=== PATIENT | female | born 1950 | race Caucasian/White ===

== ENCOUNTER 2016-10-15 16:50 | Inpatient (IN) ==
[~2016-10-15 16:50] MED LIST: AMIDATE ONE; QUELICIN ONE
[2016-10-15] MEDS ORDERED: ZOFRAN ONE (16:55)
[2016-10-15] MEDS ORDERED: NS 1,000 ML IV PRN (16:57)
[2016-10-15] MEDS ORDERED: ZOFRAN IV ONE (16:59)
[2016-10-15] MEDS ORDERED: NS 1,000 ML ONE (17:11)
[2016-10-15] MEDS ORDERED: PEPCID ONE (17:12)
--- NOTE | 2016-10-15 17:15 | EKG Report ---
Test Performed on : 10/15/2016 5:00:54 PM Test Reason : unresponsive Blood Pressure : / mmHG Vent. Rate : 137 BPM Atrial Rate : 137 BPM P-R Int : 080 ms QRS Dur : 078 ms QT Int : 374 ms P-R-T Axes : 000 066 074 degrees QTc Int : 564 ms Sinus tachycardia. with short DC ST \T\ T wave abnormality, consider anterior ischemia Abnormal ECG No previous ECGs available Unconfirmed Result
[2016-10-15 17:16] LABS: MANUAL DIFF NEEDED? NO
[2016-10-15] MEDS ORDERED: SODIUM CHLORIDE 0.9% INJ ONE ×4 (17:18→23:36)
[2016-10-15] MEDS ORDERED: PEPCID IV ONE ×2 (17:18→18:08)
[2016-10-15] MEDS ORDERED: NS 1,000 ML IV ONE ×2 (17:20→19:24)
[2016-10-15 17:22] LABS: BASO% 0.3 % (0.0-0.8); EOS# 0.06 X1000 (0.0-0.7); EOS% 0.4 % (0.0-10.0); HEMATOCRIT 39.7 % (37.0-47.0); HEMOGLOBIN 13.3 g/dL (12.0-16.0); IMM GRAN# 0.05 X1000 (0.0-0.04); IMM GRAN% 0.3 % (0.0-0.5); LYMPH# 4.89 X1000 (1.2-3.4); LYMPH% 32.2 % (20.5-51.1); MCH 31.5 PG (27-31); MCHC 33.5 g/dL (33-37); MCV 94.1 FL (81-99); MONO# 0.75 X1000 (0.11-0.59); MONO% 4.9 % (1.7-9.3); MPV 10.3 FL (7.4-10.4); NEUT% 61.9 % (42.2-75.2); PLT 311 X1000 (130-400); RBC 4.22 XMIL (4.2-5.4)
[2016-10-15] MEDS ORDERED: PHENERGAN ONE (17:31)
[2016-10-15 17:38] LABS: UR AMPHETAMINES QUAL NONE DETECTED (NONE DETECT); UR BARBITUATES QUAL NONE DETECTED (NONE DETECT); UR BENZODIAZEPIN QUAL NONE DETECTED (NONE DETECT); UR CANNABINOIDS QUAL NONE DETECTED (NONE DETECT); UR COCAINE QUAL NONE DETECTED (NONE DETECT); UR MDMA QUAL NONE DETECTED (NONE DETECT); UR METHADONE QUAL NONE DETECTED (NONE DETECT); UR METHAMPHETAMINE QUAL NONE DETECTED (NONE DETECT); UR OPIATES QUAL NONE DETECTED (NONE DETECT); UR OXYCODONE QUAL NONE DETECTED (NONE DETECT); UR PCP QUAL NONE DETECTED (NONE DETECT); UR TCA QUAL PRESUMPTIVE POSITIVE (NONE DETECT)
[2016-10-15 17:44] LABS: BILIRUBIN URINE NEGATIVE (NEGATIVE); BLOOD URINE NEGATIVE (NEGATIVE); CLARITY CLEAR (CLEAR); COLOR YELLOW; GLUCOSE URINE NEGATIVE (NEGATIVE); LEUKOCYTES URINE 1+ (NEGATIVE); NITRITE URINE NEGATIVE (NEGATIVE); PROTEIN URINE TRACE mg/dL (NEGATIVE); UROBILINOGEN URINE NORMAL
[2016-10-15 17:45] LABS: URINE CAST NONE SEEN /LPF; URINE CRYSTAL NONE SEEN /HPF; URINE CULTURE PL NEEDED? YES; URINE EPITHELIAL CELLS <10 /HPF (<10); URINE SOURCE CATH
[2016-10-15 17:51] LABS: ACETAMINOPHEN < 1.2 ug/mL (10-30)
[2016-10-15 17:52] LABS: INR 1.25 (0.86-1.15); PTT PL 28.4 Seconds (22.6-43.9)
[2016-10-15] MEDS ORDERED: PHENERGAN IV ONE (18:08)
[2016-10-15 18:13] LABS: AGAP 19; ALBUMIN 4.4 g/dL (3.5-5.0); ALKALINE PHOSPHATASE 63 U/L (32-104); BUN 26 mg/dL (8-22); CHLORIDE 102 mmol/L (98-107); COSMO 290; GOT 27 U/L (10-30); GPT 11 U/L (10-36); POTASSIUM 3.6 mmol/L (3.5-5.1); SODIUM 142 mmol/L (136-145); TCO2 21 mmol/L (25-35); TOTAL BILIRUBIN < 0.15 mg/dL (0.20-1.00); TOTAL PROTEIN 7.2 g/dL (6.3-8.3)
[2016-10-15 18:22] LABS: BE -0.3 mmoll (-3.0-3.0); BLOOD TYPE ARTERIAL; DRAW SITE R RADIAL; METHB 1.7 % (0.0-1.5); O2(CT) 14.3 mL/dL (15.0-23.0); PCO2(98.6) 37 mmHg (35-45); PO2(98.6) 84 mmHg (60-100); SAMPLE BLOOD; SAO2 97.8 % (95.0-100.0); THB 11.2 g/dL (11.5-17.4); pH(98.6) 7.42 (7.35-7.45)
[2016-10-15 18:25] LABS: ALLEN TEST NO; MODALITY CANNULA
[2016-10-15] MEDS ORDERED: ZOFRAN IV PRN ×2 (19:24→22:49)
[2016-10-15] MEDS ORDERED: PROTONIX IV SCH (22:30)
[2016-10-15] MEDS ORDERED: SODIUM CHLORIDE 0.9% INJ SCH (22:30)
[2016-10-15] MEDS ORDERED: PNEUMOVAX 23 IM ONE (22:49)
[2016-10-15] MEDS ORDERED: SODIUM BICARBONATE 8.4% 150 MEQ in D5W 1,000 ML IV SCH (23:00)
[2016-10-15 23:17] LABS: HEMATOCRIT 34.3 % (37.0-47.0); HEMOGLOBIN 11.6 g/dL (12.0-16.0)
[2016-10-15] MEDS ORDERED: PROTONIX IV ONE (23:36)
[2016-10-15] MEDS ORDERED: HALDOL IV PRN (23:37)
[2016-10-15 23:38] LABS: AGAP 14; BUN 25 mg/dL (8-22); CALCIUM 8.3 mg/dL (8.8-10.2); CHLORIDE 108 mmol/L (98-107); COSMO 293; POTASSIUM 3.6 mmol/L (3.5-5.1); SODIUM 145 mmol/L (136-145); TCO2 23 mmol/L (25-35)
[2016-10-15] MEDS ORDERED: ZYPREXA ZYDIS PO ONE (23:38)
[2016-10-15] MEDS: PROTONIX 80 MG in NS 80 ML IV SCH (23:55)
--- NOTE | 2016-10-16 07:08 | HISTORY AND PHYSICAL ---
TIME: 2149 PRIMARY CARE PROVIDER: Patient's primary care provider is EZRA Childers. NEUROLOGIST: Dr. Tian CHIEF COMPLAINT: Altered mental status. HISTORY OF PRESENT ILLNESS: Ms. Dhillon is a 66-year-old, female who presented to [facility] ER at approximately at 1650 on October 15 with complaints of altered mental status as well as possible seizure activity and nausea and vomiting. The patient's daughter, who was with her mother at the time of this episode, reports that all day that she complained of not feeling well and feeling very tired. She states that this afternoon, they walked to the grocery store which is only a few blocks from their house. When they returned from the grocery store, that her mother was very tired, stated she needed to sit down on the couch, and then stated that she felt as though she needed to lay down. She reported that she got her mother into the bedroom and that is when she became very cold, diaphoretic, and her eyes began to roll back in her head, and she did fall, having what appeared to be seizure activity. Daughter reports that her mother was not responsive at this time and was shaking. Her daughter sts she had a similar episode 3 months ago. She also reports that during this time, she did have a vomiting episode which did have a coffee-grounds appearance to the emesis. At this time, her daughter did call an ambulance and had them bring her to the ER at [facility]. Her daughter also reports that for the past few days, her mother has been complaining of some abdominal pain. She did report that a few days ago that she had some blood in her stools but told her that it was better. Her daughter also reports that she has been complaining of feeling tired for the past few weeks. She also reports that she does have a history of chronic headaches and uses BC/Goody's powders daily. Her daughter sts that she can take anywhere up to 6 of these a day. Her daughter also reports that she does have a history of dementia, anxiety, and depression, and that recently they have changed some of her medications. I did ask the daughter whether or not she took any other medications. The daughter states that she did check her medication bottles which were empty, though these medicines were to be filled tomorrow. Upon arrival to the ER at [facility], the ER staff there reported that the patient was confused. She was alert and oriented to person only, and was initially combative and did have to be placed in restraints at 1 time while in the ER. Upon further evaluation, given the patient's report of recent salicylate usage and abdominal pain with vomiting, a Hemoccult stool was done which was positive. At this time, the patient's hemoglobin and hematocrit were within normal range with a hemoglobin of 13.3 and a hematocrit of 39.7. Also, her salicylate level was 48.45. At this time, the patient will be transferred to [facility] for further evaluation of gastrointestinal bleed as well as salicylate toxicity. REVIEW OF SYSTEMS: A 12 point review of systems was conducted with the patient. All were negative except for pertinent positives mentioned above in the HPI. PAST MEDICAL HISTORY: 1. Hypertension. 2. Hyperlipidemia. 3. History of gastric ulcers. 4. Migraines. 5. Dementia. 6. Anxiety. 7. Depression. 8. Tobacco abuse. 9. History of previous alcohol abuse. PAST SURGICAL HISTORY: Patient has no known history of previous surgeries. SOCIAL HISTORY: The patient is a current smoker and smokes anywhere from 1-2 packs per day and has so for 48 years. She also does have a previous history of heavy every day alcohol use. Her daughter states that she abused alcohol for approximately 20 years, though has quit drinking for approximately 10 years now. Her daughter and her live together here in [place]. She denies any illicit drug use. FAMILY HISTORY: Her mother has a history of heart disease and open heart surgery as well as lung cancer and hypertension. Her father has a history of lung cancer. There is a history of hypertension in her other siblings. ALLERGIES: Patient has no known allergies. HOME MEDICATIONS: 1. Aricept 10 mg p.o. daily. 2. Atenolol 25 mg p.o. daily. 3. Amitriptyline 75 mg p.o. at bedtime. 4. Hydrochlorothiazide 25 mg p.o. daily. 5. Lexapro 20 mg p.o. daily. 6. Pravastatin 40 mg p.o. daily. 7. Loratadine 10 mg p.o. daily. DIAGNOSTIC DATA/LABORATORY RESULTS: White blood cell count 15.2, hemoglobin 13.3, hematocrit 39.7, platelet count is 311,000. PT 16, INR 1.25, PTT is 28.4. Sodium 142, potassium 3.6, chloride 102, bicarb 21, anion gap is 19, BUN 26, creatinine 1, with a GFR of 56 , glucose 135, calcium 9. Total bilirubin is less than 0.15, AST 27, ALT 11, alkaline phosphatase 63, CK 87, troponin less than 0.01. Salicylate level was 48.45, acetaminophen level was less than 1.2. Urinalysis was positive for trace protein, 1+ white blood cells, and 10-20 microscopic white blood cells, and 1+ bacteria. It was negative for ketones, blood, or nitrites. Urine drug screen was positive for tricyclics, though was otherwise negative. Hemoccult stool was positive. Arterial blood gases were obtained on nasal cannula at 3 L, pH 7.42, pCO2 37, PO2 84, HCO3 was 24.6, with a base excess of -0.3, and O2 saturation of 97.8, with a carboxyhemoglobin of 5.9. A chest x-ray showed no acute abnormality, though we are awaiting official radiology over-read. Head CT non-contrast shows no hemorrhage, atrophy, and right sided sinusitis, per radiology. Patient's EKG showed sinus tachycardia with a short AL, with an ST and T-wave abnormality, with a rate of 137. PHYSICAL EXAMINATION: VITAL SIGNS: Temperature 98.7 degrees, heart rate 97, respirations 18, blood pressure 93/52, with a MAP of 63, oxygen saturation is 98% on nasal cannula at 2 L. GENERAL: Ms. Dhillon is a 66-year-old, female who was resting comfortably in the inpatient bed. She was drowsy upon examination, though was easily arousable with verbal stimulation. She was alert and oriented to person and time only. She thought that she was at home in her bed instead of in the hospital. During the examination, the patient did have some periods where she became agitated, though did ultimately calm down. HEENT: Head is atraumatic, normocephalic. Pupils are equal, round, reactive to light, were 3 mm bilaterally and brisk. Oral mucosa is moist. Oropharynx is clear. NECK: Supple. Trachea midline. CARDIOVASCULAR: Patient has normal S1 and S2. No murmurs, gallops, or rubs appreciated, with a regular rate and rhythm. PULMONARY: Patient has symmetrical chest expansion. Bilateral lung sounds are clear to auscultation in bilateral full espinal. ABDOMEN: Soft and nondistended. No facial grimacing or guarding noted upon palpation of the abdomen. Bowel sounds were present in all 4 quadrants, were normoactive. GENITOURINARY: Patient has a Scott catheter in place at this time with yellow urine noted to the Scott drainage bag. EXTREMITIES: No cyanosis, clubbing, or edema noted. Pulse, motor and sensory were intact in all extremities as well. Pedal pulses were 3+ bilaterally. Capillary refill was less than 3. INTEGUMENTARY: Patient's skin is pink, warm, and dry. NEUROLOGICAL: The patient is alert and oriented to person and time only, though her neurological exam is somewhat limited. The cranial nerves 2-12 do appear to be grossly intact. ASSESSMENT AND PLAN: 1. Gastrointestinal bleed. At this time, we suspect this is an upper gastrointestinal bleed given her history of gastric ulcer as well as daily use of BC powders and reported coffee- grounds emesis. We have placed the patient on a Protonix drip. We will do a series of hemoglobin and hematocrit, and follow these closely. At this time, the patient is hemodynamically stable. She will be placed nothing per oral. We have placed a consult with Dr. Lucas and we will await her evaluation and further recommendations. 2. Salicylate toxicity. At this time, the patient's salicylate level was initially 48.45 with a repeat of 33.93 approximately 6 hours later. Her previous pH in her arterial blood gases was normal. On the most recent lab work, her bicarbonate is 23 with an anion gap of 14. We have placed the patient on a sodium/bicarbonate drip and we will repeat a salicylate level in the morning. We have also placed her on neurological checks every 4 hours as well as aspiration precautions. We will monitor her very closely. 3. Hypertension. We will continue her atenolol. 4. Hyperlipidemia. We will continue her pravastatin. 5. Depression. We will continue her amitriptyline and Lexapro. 6. Dementia. We will continue her Aricept. 7. Tobacco abuse. We will rehabilitation counselor the patient during her admission of the importance of smoking cessation and upon discharge. 8. The patient was placed on CICU with telemetry. She will have vital signs every 4 hours. We will provide deep venous thrombosis prophylaxis with sequential compression devices. There is a questionable history of an episode of seizure-like activity so we have also placed her on seizure precautions. We will repeat a CBC, BMP, and salicylate level in the morning. We have also placed an order for hepatic function as well, as well as a repeat INR. The patient did have some white blood cells and bacteria present in her urine. We have placed an order for a urine culture. We will await those results and we will continue to follow. Further orders and recommendations pending hospital course, diagnostic studies, and physician evaluation. Dictated by EZRA Landeros for Beni Rock MD cc: Beni Rock MD pt examined, agree with above APENOT MTDD
--- NOTE | 2016-10-16 07:08 | Diag Imaging Result Doc PS360 ---
EXAM: HEAD W/O CONTRAST HISTORY: AMS TECHNIQUE: Dose reduction protocol COMPARISON: None. FINDINGS: The original dictation has been lost. No parenchymal hemorrhage. No epidural or subdural hematoma. No subarachnoid hemorrhage. Mild atrophy. No hydrocephalus. Mucous fills the right frontal sinus and is present in the right maxillary sinus. IMPRESSION: 1.No hemorrhage 2.Atrophy 3.Right-sided sinusitis Electronically signed by Estiven Velasco 10/16/2016 6:15 AM
--- NOTE | 2016-10-16 07:11 | Diag Imaging Result Doc PS360 ---
EXAM: CHEST-PORTABLE HISTORY: abd pain/r/o gi bleed TECHNIQUE: AP portable at 1712 COMMENT: There is no evidence of acute cardiac or pulmonary disease. There are no previous studies. IMPRESSION: No acute disease. Electronically signed by Obed Antony 10/16/2016 7:09 AM
[2016-10-16 07:35] LABS: INR 1.27; MANUAL DIFF NEEDED? NO; PROTIME 13.5 Seconds (9.2-11.7)
--- NOTE | 2016-10-16 07:41 | Diag Imaging Result Doc PS360 ---
ABDOMEN FLAT/UPRIGHT - 10/15/2016 INDICATION: pain TECHNIQUE: Two views COMPARISON: None FINDINGS: There is a nonobstructive bowel gas pattern. No free air or abdominal calcifications. IMPRESSION: No acute disease. Electronically signed by Dale Pace 10/16/2016 7:39 AM
[2016-10-16 07:59] LABS: BASO% 0.2 % (0.0-0.8); EOS# 0.07 X1000 (0.0-0.7); EOS% 0.6 % (0.0-10.0); HEMATOCRIT 33.5 % (37.0-47.0); IMM GRAN# 0.03 X1000 (0.0-0.04); IMM GRAN% 0.3 % (0.0-0.5); LYMPH# 3.87 X1000 (1.2-3.4); LYMPH% 34.2 % (20.5-51.1); MCH 31.7 PG (27-31); MCHC 32.8 g/dL (33-37); MCV 96.5 FL (81-99); MONO# 0.61 X1000 (0.11-0.59); MONO% 5.4 % (1.7-9.3); MPV 10.6 FL (7.4-10.4); NEUT% 59.3 % (42.2-75.2); PLT 246 X1000 (130-400); RBC 3.47 XMIL (4.2-5.4)
[2016-10-16 08:16] LABS: AGAP 12; BUN 26 mg/dL (8-22); CALCIUM 8.1 mg/dL (8.8-10.2); CHLORIDE 107 mmol/L (98-107); COSMO 294; SODIUM 146 mmol/L (136-145); TCO2 27 mmol/L (25-35)
[2016-10-16 08:50] LABS: ALBUMIN 3.6 g/dL (3.5-5.0); ALKALINE PHOSPHATASE 49 U/L (32-104); DIRECT BILIRUBIN < 0.20 mg/dL (0.00-0.20); GOT 20 U/L (10-30); GPT 8 U/L (10-36); TOTAL BILIRUBIN < 0.10 mg/dL (0.20-1.00); TOTAL PROTEIN 5.2 g/dL (6.3-8.3)
[2016-10-16] MEDS ORDERED: TENORMIN PO SCH (09:00)
[2016-10-16] MEDS ORDERED: HYDROCHLOROTHIAZIDE PO SCH (09:00)
[2016-10-16] MEDS ORDERED: CLARITIN PO SCH (09:00)
--- NOTE | 2016-10-16 09:22 | PROGRESS NOTE ---
DATE: 10/16/2016 SUBJECTIVE: Ms. Dhillon presented yesterday. Apparently she had a spell that started with nausea and then she had, by her daughter's report, some shaking and throwing up. I am not sure if she aspirated. Daughter seemed to think she was having a seizure but she seemed to remain conscious. Apparently he has had a spell like this before. No focal neurologic deficit reported. The daughter states her eyes rolled back in her head. This morning she feels fine. She has no complaints. No nausea. She is requesting food. OBJECTIVE: Neurologic: I do not detect any new neurologic deficits. Cranial nerves intact. Motor strength seems to be symmetrical. Sensation intact. Vital signs: Temp 98.3 degrees, pulse 80, respirations 14, blood pressure 81/47. Lungs: Clear in all lung espinal. Cardiovascular: Regular rhythm and rate without murmur or S3. Abdomen: Soft. Skin: Warm and dry. : Good urine output 1150 mL. LAB: Work from this morning, white count 11,330, yesterday was 15,000, hematocrit 33, platelet count 246,000. Sodium 146, potassium 3.0, chloride 107, BUN 26, creatinine 0.6. Abdominal x-ray which was done yesterday did not show any acute abnormality. No acute disease. ASSESSMENT AND PLAN: Spell involving nausea and it sounds like a short syncopal episode, but then also some shaking. It does not sound like a tonic-clonic seizure and this may be a vasovagal event associated with the nausea. She appears to be comfortable at the present time, neurologically intact. Note that blood pressure is a little on the low side. She is requesting food. I will put her on a regular diet. She is on Tenormin daily, 25 mg a day, and I wonder if I need to stop that. Try and explore some of her past medical history. She is also on hydrochlorothiazide once a day. I think I am going to stop both of those. She has also been taking a lot of Goody powders recently but she denies abdominal pain that would be suggestive of peptic ulcer disease. I am going to stop her Claritin. I am going to stop her atenolol. Of note, she is on a pretty good dose of amitriptyline too which could cause orthostasis. I am going to ask neurology, I think Dr. Tian has seen her before, if it have any thoughts. cc: Tl Howe MD
[2016-10-16] MEDS: LEXAPRO PO SCH (09:43)
[2016-10-16] MEDS: ARICEPT PO SCH (09:44)
[2016-10-16] MEDS: POTASSIUM CHLORIDE 20 MEQ/SWI 20 MEQ/100 ML IVPB IV SCH ×2 (09:44→11:55)
[2016-10-16] MEDS: PRAVACHOL PO SCH (09:44)
[2016-10-16] MEDS: PROTONIX 80 MG in NS 80 ML IV SCH ×2 (09:44→21:37)
[2016-10-16 10:34] LABS: HEMATOCRIT 35.2 % (37.0-47.0); HEMOGLOBIN 11.5 g/dL (12.0-16.0)
--- NOTE | 2016-10-16 16:34 | CONSULTATION ---
DATE OF CONSULTATION: 10/16/2016 REASON FOR REFERRAL: Nausea and vomiting. Questionable GI bleed. HISTORY OF PRESENT ILLNESS: This is a 66-year-old white female who reports onset of symptoms yesterday morning. Patient's daughter is at the bedside. The patient states they had walked to the grocery store which is not far from their house. While she was at the grocery store she felt fine. On the way home she states she became very hot and diaphoretic, she started feeling bad. She sat down and had an episode of vomiting. The daughter states her eyes rolled back in her head and she thought she might be having a seizure. She was brought to the emergency room to [place] and was transferred to [facility] for further evaluation. The daughter states she had complained of some abdominal pain. The patient currently denies abdominal pain. She denies blood in the stool or black stools. She denies problems with constipation or diarrhea. No reported reflux or heartburn. No reported dysphagia. Daughter reports vomiting was greenish and dark in color. Patient states she has never had an EGD or colonoscopy. Patient had some confusion but her mental status has improved per daughter. Hemoccult of gastric contents was positive. Patient reports taking Goody powders frequently for headaches. PAST MEDICAL HISTORY: Hypertension, hyperlipidemia, migraines, dementia, depression/anxiety. PAST SURGICAL HISTORY: None reported. SOCIAL HISTORY: Positive for tobacco use. She says she smokes 1 pack of cigarettes a week although other history shows that she smokes 1-2 packs of cigarettes per day. Patient denied any current alcohol use. In her history, it states she does have a history of heavy alcohol use in the past. In the records is states she has been quit from drinking for approximately 10 years now. Patient and daughter live together. FAMILY HISTORY: Patient states her mother and father had history of lung cancer. ALLERGIES: No known drug allergies. HOME MEDICATIONS: Donepezil 10 mg daily, atenolol 25 mg daily, amitriptyline 75 mg every night, hydrochlorothiazide 25 mg daily, Lexapro 20 mg daily, Pravachol 40 mg daily, loratadine 10 mg daily. REVIEW OF SYSTEMS: Per HPI. OBJECTIVE: Vital signs: Temperature 98.7 degrees, pulse 75, respirations 14, blood pressure 90/48. General Exam: Patient is awake, alert, no acute distress. HEENT: Normocephalic, atraumatic. Pupils equal, round, reactive to light. Sclerae are nonicteric. Cardiovascular: Regular rate and rhythm. Respiratory: Lung sounds clear bilaterally. Abdomen : Soft, nondistended, no abdominal pain with palpation. Bowel sounds present. Extremities: No lower extremity edema noted. +2 pulses bilaterally. Neurological: She is currently awake, alert, oriented to person, place, and time. DIAGNOSTIC RESULTS: Laboratory. Hematology. White count 11.33, hemoglobin 11.5, hematocrit 35.2, MCV 96.5, platelets 246,000. Coagulation. Pro time 13.5, INR 1.27, PTT 28.4. Chemistry . Sodium 146, potassium 3.0, chloride 107, CO2 27, BUN 26, creatinine 0.9, glucose 81, calcium 8.1, total bilirubin less than 0.10, AST 20, ALT 8, alkaline phosphatase 49, troponin less than 0.010. Toxicology showed salicylates 33.93 on admission, today 28.15. ASSESSMENT AND PLAN: 1. Nausea and vomiting. 2. Salicylate toxicity. 3. Questionable gastrointestinal bleed with Hemoccult positive gastric content. 4. Hypotension. Her blood pressure medicines have been held at present. Continue supportive care. Continue to monitor hemoglobin and hematocrit. Monitor for any active bleeding. The patient does take Goody powders on a regular basis. We will plan to proceed with an EGD when able . Further plans will be made according to findings. Will advance diet to regular diet today and we will plan for EGD on Sunday. I have discussed the procedure along with the benefits and risks with the patient and her daughter and they wish to proceed. Further plans to be made as needed according to findings. I have discussed this case with Dr. Dailey. Thank you for this consultation. Dictated by EZRA Kidd for Az Dailey MD cc: EZRA Robledo MD [facility]
[2016-10-16] MEDS: NS 1,000 ML IV SCH (16:54)
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
--- NOTE | 2016-10-16 19:30 | EEG REPORT ---
DATE: 10/16/2016 BASIC INFORMATION: REFERRING PHYSICIAN: Dr. Lady Mooney and Dr. Tl Howe. EE SPORTS JOURNALIST: Lynnette Sosa. BACKGROUND INFORMATION: TECHNIQUE: A digitally recorded EEG is performed with 1 additional channel EKG. HISTORY OF PRESENT ILLNESS: This is a 66-year-old, female, admitted with altered mental status and a question of seizure. An EEG is ordered to evaluate for possible seizures. MEDICATIONS: Aricept, Lexapro, amitriptyline. EEG FINDINGS: A posterior dominant alpha rhythm is notably absent. The background consists of 6- 7 Hz theta range frequencies with some admixed faster frequencies. No focal slowing is identified. No epileptiform discharges and no seizures are seen. Hyperventilation did not produce any background slowing. Photic stimulation did not induce a driving response. There is no change of the record to suggest drowsiness or sleep. The EKG demonstrates regular RR intervals. IMPRESSION AND CLINICAL CORRELATION: Abnormal routine EEG in the awake state due to: 1. Mild diffuse slowing indicative of a mild encephalopathy. Generalized slowing is a nonspecific finding that can be seen in processes that diffusely affect the cerebrum, including toxic, metabolic, post hypoxic, pharmacologic or infectious conditions. No epileptiform abnormalities or seizures were noted. This does not rule out an underlying seizure disorder. cc: Lady Mooney MD [facility]
[2016-10-16] MEDS ORDERED: ELAVIL PO SCH (21:00)
[2016-10-17] MEDS: NS 1,000 ML IV SCH ×3 (04:36→19:25)
[2016-10-17] MEDS: PROTONIX 80 MG in NS 80 ML IV SCH ×2 (04:59→15:13)
[2016-10-17 06:06] LABS: AGAP 8; BUN 14 mg/dL (8-22); CALCIUM 8.5 mg/dL (8.8-10.2); CHLORIDE 108 mmol/L (98-107); COSMO 283; MAGNESIUM 2.1 mg/dL (1.5-2.7); POTASSIUM 3.8 mmol/L (3.5-5.1); SODIUM 142 mmol/L (136-145); TCO2 26 mmol/L (25-35)
[2016-10-17 06:16] LABS: FREE T4 0.86 ng/dL (0.93-1.70)
--- NOTE | 2016-10-17 08:20 | PROGRESS NOTE ---
DATE: 10/17/2016 SUBJECTIVE: Ms. Dhillon had a good night. No nausea. Doing well. Tolerating solid food. PHYSICAL EXAMINATION: Vital Signs: Afebrile, temperature 98.6 degrees, pulse 75, respirations 14, blood pressure 139/64. HEENT: Pupils are equal and round. Lungs: Clear in all lung espinal. Cardiovascular Examination: Regular rhythm and rate without murmur or S3. Abdomen: Soft. Skin: Is warm and dry. Is an Os: Urine output over 1400 mL. LAB: Hematocrit was 35, stable. ASSESSMENT AND PLAN: 1. Nausea and vomiting. Plan for EGD tomorrow. Continue her regular diet. She is doing much better. 2. Questionable mild salicylate toxicity. She was taking a lot of Goody's Powder. Resolved. 3. It sounds like she may have had a vasovagal episode. I have stopped her blood pressure medications. Blood pressure doing well. 4. Questionable gastrointestinal bleed. Hemoccult positive for gastric content so EGD tomorrow. 5. Review of orders. I do not see any change. She is on Pravachol 40 mg a day, Lexapro 20 mg a day, Aricept [address] Lady Mooney is seeing as well for neurology. Differential of convulsive syncope versus seizure. Has not had any more events. The history is not entirely clear so order routine, I think a routine EEG and see if there are any interictal abnormalities. cc: Tl Howe MD
[2016-10-17] MEDS: LEXAPRO PO SCH (10:18)
[2016-10-17] MEDS: ARICEPT PO SCH (10:18)
[2016-10-17] MEDS: PRAVACHOL PO SCH (10:18)
--- NOTE | 2016-10-17 11:08 | PROGRESS NOTE ---
DATE: 10/17/2016 SUBJECTIVE: Ms. Dhillon says she slept very well last night. She is not having any lightheadedness or tremulousness. She does not feel nauseated. She says she is feeling much better overall. There is a plan for an EGD tomorrow. OBJECTIVE: Vital Signs: Afebrile. Blood pressure 139/64. Pulse 75. Respiratory rate 14, with 100% saturation on room air. General: She is in no acute distress. She is sitting up in bed, doing a find-a-word puzzle. She is interactive. Cardiovascular: Regular rate and rhythm. Intact pulses. Lungs: Clear to auscultation anteriorly. Abdomen: Soft, nontender. Neurologic: Mental status: Awake and alert. She is attentive and interactive. She is fully oriented, with the exception of today's date. Cranial nerves: Pupils are equal, round, reactive to light. Conjugate gaze. Ocular movements are full. Face is symmetric with equal activation. Tongue protrudes midline. Palate elevates symmetrically. Shoulder shrug is full. Motor examination: She is moving all of her extremities equally and there is no asymmetry detected. No evidence of incoordination. DIAGNOSTICS: EEG performed yesterday was personally reviewed. It was abnormal in the awake state due to mild diffuse encephalopathy, which was nonspecific. No epileptiform discharges or seizures were noted. Sodium of 142, potassium 3.8. BUN back to normal at 14, creatinine 0.7. Calcium 8.5, magnesium 2.1. Vitamin B12 was 460. Folate 17. TSH 3.63. Free T4 was 0.86. Her urine culture was negative. ASSESSMENT AND PLAN: This is a 66-year-old female with history of depression, anxiety, and hypertension, who was admitted with altered mental status, nausea, vomiting , and question of seizure-like activity. The differential is convulsive syncope versus seizure. Given the history and her low blood pressures while hospitalized, convulsive syncope is more likely. Her EEG did not show any interictal abnormalities to suggest an increased propensity for seizure. If this were a seizure, it would most likely have been provoked and, in addition to that, would have been a first-time event with otherwise negative EEG and imaging, not requiring initiation of antiepileptic medications. Agree with correcting her low BPs as you have done. No further suggestions at this time. Thank you for this consult. Will sign off now, but we are available if needed. cc: Lady Mooney MD [facility]
--- NOTE | 2016-10-17 12:29 | PROGRESS NOTE ---
DATE: 10/17/2016 SUBJECTIVE: Patient states she is feeling much better. She states she slept very well last night. She is tolerating a regular diet. She is asking if she can have her Scott catheter removed. OBJECTIVE: Vital Signs: Temperature 98.6 degrees, pulse 75, respirations 14, blood pressure 139/64. General: The patient is awake and alert, in no acute distress. No confusion noted. Respiratory: Lung sounds clear bilaterally. Cardiovascular: Regular rate and rhythm. Abdomen: Soft, nontender. DIAGNOSTIC RESULTS: Laboratory: On 10/16/2016, WBC 11.33, hemoglobin 11.5, hematocrit 35.2, platelets 246,000. Coagulation: Prothrombin time 13.5 and INR 1.27. Chemistry : On 10/17/2016, sodium 142, potassium 3.8, chloride 108, CO2 of 26, BUN 14, creatinine 0.7, glucose 84, calcium 8.5, magnesium 2.1. ASSESSMENT: 1. Nausea and vomiting, resolved. 2. Questionable gastrointestinal bleed with Hemoccult-positive gastric contents. 3. Seizure versus convulsive syncope. She has been seen by a neurologist. EEG was done. 4. NSAID use PLAN: Continue PPI. Will plan for EGD tomorrow. Further plans will be made according to findings. I have discussed with the patient about avoiding NSAIDs, including Goody powders, which she takes on a regular basis. I have discussed this case with Dr. Dailey. Dictated by EZRA Kidd for Az Dailey MD cc: EZRA Robledo MD [facility]
[2016-10-17] MEDS ORDERED: TYLENOL PO PRN (15:20)
[2016-10-18] MEDS: PROTONIX 80 MG in NS 80 ML IV SCH ×2 (00:51→11:26)
[2016-10-18] MEDS: NS 1,000 ML IV SCH ×2 (04:10→16:45)
[2016-10-18 05:20] LABS: MANUAL DIFF NEEDED? NO
[2016-10-18 05:29] LABS: BASO% 0.1 % (0.0-0.8); EOS# 0.14 X1000 (0.0-0.7); EOS% 1.7 % (0.0-10.0); HEMATOCRIT 34.9 % (37.0-47.0); HEMOGLOBIN 11.6 g/dL (12.0-16.0); LYMPH# 2.13 X1000 (1.2-3.4); LYMPH% 25.2 % (20.5-51.1); MCH 32.1 PG (27-31); MCHC 33.2 g/dL (33-37); MCV 96.7 FL (81-99); MONO# 0.46 X1000 (0.11-0.59); MONO% 5.4 % (1.7-9.3); NEUT% 67.6 % (42.2-75.2); PLT 210 X1000 (130-400); RBC 3.61 XMIL (4.2-5.4)
[2016-10-18 07:39] VITALS: BP 119/44
--- NOTE | 2016-10-18 08:47 | PROGRESS NOTE ---
DATE: 10/18/2016 SUBJECTIVE: Ms. Dhillon had a good night. Feels good. Ready for her procedures this morning. She has a planned an EGD and colonoscopy. Remains afebrile. PHYSICAL EXAMINATION: Vital Signs: Temperature 98.6 degrees, pulse 70, respirations 16, blood pressure 119/44. HEENT: Pupils are equal and round. Lungs: Are clear in all lung espinal. Cardiovascular Examination: Regular rhythm and rate without murmur or S3. Abdomen: Soft. Skin: Is warm and dry. Is and Os: Urine output over 3 L. LAB: White count 8450, hematocrit is 34, platelet count 210,000. Electrolytes reviewed from yesterday. ASSESSMENT AND PLAN: 1. Nausea and vomiting which has resolved. 2. Questionable gastrointestinal bleed with Hemoccult-positive guaiac contents. Planned EGD and colonoscopy today. 3. Seizure versus convulsive syncope. Workup has been unremarkable. I suspect vasovagal event. 4. Nonsteroidal anti-inflammatory use. She is on a proton pump inhibitor. We will see what her studies show. If they look good, then she can go home. cc: Tl Howe MD
[2016-10-18] MEDS ORDERED: DIPRIVAN 1% ONE (16:21)
[2016-10-18] MEDS: PRAVACHOL PO SCH (16:46)
[2016-10-18] MEDS: ARICEPT PO SCH (16:46)
[2016-10-18] MEDS: LEXAPRO PO SCH (16:46)
--- NOTE | 2016-10-18 16:58 | OPERATIVE NOTE ---
PROCEDURE DATE: 10/18/2016 PROCEDURE: EGD and biopsy. PREOPERATIVE DIAGNOSIS: Anemia. POSTOPERATIVE DIAGNOSIS: Pyloric channel ulcer, erosive gastritis, duodenitis. HISTORY: This is a 66-year-old white female admitted to hospital with syncopal episode. Was found to have significant anemia. EGD was done to rule out upper GI pathology resulting in her anemia. DESCRIPTION OF PROCEDURE: Informed consent obtained from the patient. Procedure risks, benefits, alternatives were explained in layman's terms. She understood. All the pertinent questions were answered. Patient was brought to the endoscopy unit and was premedicated as per Anesthesia. After adequate sedation, while she was lying in left lateral position, the gastroscope was introduced into the posterior pharynx and advanced under direct vision into the esophagus. The esophagus in its entire length appeared to be normal. No esophagitis, webs, rings, varices were seen. The GE junction was noted at about 39 cm from the incisors. The scope was then passed through the esophagus into the stomach. The stomach was examined both in straight and retroflexed view, which revealed normal cardia, fundus, and body. Antrum however showed evidence of moderately severe gastritis. There were multiple erosions noted with significant hyperemia and edema. The pyloric channel showed evidence of a small ulcer which was about 8 mm in size, clean based, punched-out on the inferior aspect. There was no evidence of active bleeding or stigmata of recent bleed seen in the pyloric channel ulcer. Biopsy from the ulcer edges as well as the antrum was obtained. Scope was then passed through the pylorus into the duodenal bulb, and then 2nd part of duodenum. Both showed evidence of mild duodenitis especially in the bulb. Again, no ulcer, AVM or masses were seen in the duodenum. The scope was then removed. Patient tolerated the procedure well. No complications noted. Patient was then transferred to the recovery area in a stable condition. IMPRESSION: Pyloric channel ulcer biopsied, erosive gastritis biopsied and duodenitis. RECOMMENDATION: I will continue her proton pump inhibitor. Switch it to p.o. Prilosec 40 mg every day. Follow up the biopsy report. If H. pylori is positive, we will treat. Avoid any NSAIDs if possible and follow up with me in the office and she will need repeat EGD in 3-4 months to confirm healing of the pyloric channel ulcer. I have explained the finding and plan to the patient. She understands. All the pertinent questions answered. cc: Az Dailey MD
--- NOTE | 2016-10-18 18:02 | DISCHARGE SUMMARY ---
ADMISSION DATE: 10/15/2016 DISCHARGE DATE: 10/18/2016 PRIMARY CARE DOCTOR: EZRA Briceño NEUROLOGIST: Marie Tian III, MD DISCHARGE DIAGNOSIS: Presented with altered mental status. HOSPITAL COURSE: She is 66-year-old female who presented to [facility] approximately 1650 on October 15 complaining of altered mental status as well as possible seizure activity and nausea and vomiting. The patient's daughter who is with her and mother at the time of the episode reports that she was complaining of not feeling well and feeling tired. States that afternoon she walked to the grocery store only a few blocks from the house. When they returned from the grocery store, her mother was very tired. She needed to sit down on the couch and then stated that she felt as though she needed to lay down. Reported that she got her mother into the bedroom and that she became very cold and diaphoretic and her eyes began to roll back in her head, and she did fall, having what appeared to be seizure activity. Daughter reports that her mother was not responsive at this time and was shaking. Her daughter states she had a similar episode 3 months ago. Also reports that this time she did have a vomiting episode, did call an ambulance and they had to bring her to the emergency room. Her daughter also reports that the past few days her mother has been complaining of some abdominal pain. She did report that a few days ago she had some blood in her stool but told her that it was better. Daughter also reports that she has been complaining of feeling tired for the past few weeks. Also reports she has been having a history of headaches and uses a lot of BC and Goodies Powder. Daughter states that she takes anywhere from 6 of these a day. Her daughter has reported that she does have a history of dementia, anxiety and depression. That recently they have changed her medications. Daughter was asked whether or not she is took any of her medications. States that she did not check her medication bottles. In the emergency room, ER staff reported the patient was confused. She was alert and oriented to person only and initially combative and they did have to place restraints at one time in the ER. Upon further evaluation given the patient's report of recent salicylate usage and abdominal pain with vomiting, Hemoccult stool was done and was positive at this time. On admission her hemoglobin was 13 and hematocrit 39, salicylate level was 48. Transferred to [facility]. She had no further events, was given some IV fluid, continued basically on her medication and she was eating without nausea. Because of her history, EGD was done on 10/18/2016 and found gastritis and duodenitis. So will continue on proton pump inhibitor. She will follow up with her general [employer]. Plan to let her go home on her home medications. I believe she is on Prilosec 40 mg a day, Pravachol 40 mg a day, Lexapro 20 mg a day, Aricept 10 mg a day. Note that on her laboratory,hematocrit was 34, hemoglobin 11.6. cc: Tl Howe MD
--- NOTE | 2016-10-18 18:04 | PROGRESS NOTE ---
DATE: 10/18/2016 ADDENDUM: Note that her blood pressure was on the low side and I did stop her amitriptyline, and I stopped her Tenormin, and stopped her blood pressure/hydrochlorothiazide medication. Note that her blood pressure did very well off these, and stayed between 110 and 140 systolic, and diastolic between 44 and 70. cc: Tl Howe MD
[2016-10-19] MEDS ORDERED: PRILOSEC PO SCH (07:00)
[2016-10-19] MEDS ORDERED: XYLOCAINE-MPF 2% ONE (08:21)
--- NOTE | 2016-11-02 02:36 | PROVIDER DOCUMENTATION ---
This chart was entered by Shandra Hines Scribe, acting as scribe for Jose Walter MD. HPI-General Adult - General Source: patient <Oumar Downs - Last Filed: 10/15/16 19:27> - General Source: patient, EMS - History of Present Illness -Gen Adult Nature of Presenting Problems: 66 yo F presents to the ER with complaint of possible seizure activity, AMS, vomiting. Pt arrived via EMS, EMS reports they arrived and pt was sitting on the couch, diaphoretic, covered in vomit, altered, and twitching activity. Family unable to state her name. Pt unable to answer questions clearly. Arrives to ER actively vomiting brown emesis. Onset/Duration: reports: just prior to arrival Associated Symptoms: reports: diaphoresis, vomiting <Jose Walter - Last Filed: 11/02/16 02:35> - General Chief Complaint: Altered Mental Status Stated Complaint: seizure/unresponsive Time Seen by Provider: 10/15/16 17:08 Allergies/Adverse Reactions: Patient Allergies Allergy/AdvReac Type Severity Reaction Status Date / Time No Known Allergies Allergy Verified 10/15/16 17:42 Home Medications: Home Medication List Medication Instructions Recorded Confirmed Last Taken Type Donepezil HCl 10 mg PO DAILY 10/15/16 10/15/16 10/15/16 08:00 History Escitalopram [Lexapro] 20 mg PO DAILY 10/15/16 10/15/16 10/15/16 08:00 History PRAVAstatin [Pravachol] 40 mg PO DAILY 10/15/16 10/15/16 10/14/16 08:00 History Review of Systems - Adult - REVIEW OF SYSTEMS - ADULT ROS:: limited per condition Constitutional: denies: chills, fever Eyes: reports: no symptoms reported Ears, Nose, Mouth & Throat: reports: no symptoms reported Cardiovascular: reports: irregular heart rate. denies: chest pain Respiratory: denies: cough, shortness of breath Gastrointestinal: reports: vomiting. denies: diarrhea Genitourinary: reports: no symptoms reported Musculoskeletal: reports: no symptoms reported Integumentary: reports: no symptoms reported Neurological: reports: no symptoms reported Psychiatric: reports: no symptoms reported Endocrine: reports: no symptoms reported Hematologic/Lymphatic: reports: no symptoms reported Allergic/Immunologic: reports: no symptoms reported All Other Systems: Reviewed and Negative <Jose Walter - Last Filed: 11/02/16 02:35> Past History - Adult - PAST MEDICAL HISTORY-ADULT Review of Records: reports: Nursing Assessment Review, Medications Reviewed Major Childhood Illnesses: reports: history unknown - IMMUNIZATION STATUS Childhood Immunizations: See Nurse Assessment Flu Vaccine: See Nurse Assessment <Jose Walter - Last Filed: 11/02/16 02:35> Physical Exam-General - PHYSICAL EXAM-ADULT Initial Vital Signs Reviewed: Yes - CONSTITUTIONAL General Appearance: thin, slow to respond - EYES Eyes: pink conjunctivae. negative: PERRL/EOMI - NECK Neck: supple, normal inspection - CARDIOVASCULAR Cardiovascular: normal peripheral pulses, tachycardia - SKIN Integumentary: diaphoresis, other (sore to bilat lower extremities) <Jose Walter - Last Filed: 11/02/16 02:35> Progress - PLAN OF CARE/RESULTS Progress/Plan/Lab Results: Vital Signs - 8 hr 10/15/16 16:51 10/15/16 17:15 10/15/16 17:27 Pulse Rate 131 H 122 H 123 H Respiratory Rate 24 25 H 26 H Blood Pressure 107/90 115/71 152/74 O2 Sat by Pulse Oximetry 94 L 100 100 10/15/16 18:05 Pulse Rate 123 H Respiratory Rate 14 Blood Pressure 96/54 O2 Sat by Pulse Oximetry 100 Laboratory Results - last 24 hr 10/15/16 10/15/16 10/15/16 16:50 16:50 16:50 WBC 15.20 H RBC 4.22 Hgb 13.3 Hct 39.7 MCV 94.1 MCH 31.5 H MCHC 33.5 RDW Std Deviation 13.3 Plt Count 311 MPV 10.3 Immature Gran % (Auto) 0.3 Neut % (Auto) 61.9 Lymph % (Auto) 32.2 [place] % (Auto) 4.9 Eos % (Auto) 0.4 Baso % (Auto) 0.3 Immature Gran # (Auto) 0.05 H Neut # (Auto) 9.40 H Lymph # (Auto) 4.89 H [place] # (Auto) 0.75 H Eos # (Auto) 0.06 Baso # (Auto) 0.05 PT 16.0 H INR 1.25 H APTT (Factor Assay) 28.4 Specimen Type Sample Site pH pCO2 pO2 HCO3 Base Excess Oxyhemoglobin ABG O2 Sat (Calculated) ABG O2 Saturation ABG Carboxyhemoglobin ABG Methemoglobin Tl Test A-a O2 Difference Total Hemoglobin Lactate Liter Flow Blood Gas Modality FiO2 % Sodium 142 Potassium 3.6 Chloride 102 Carbon Dioxide 21 L Anion Gap 19 BUN 26 H Creatinine 1.0 H Estimated GFR/1.73 m2 56 BUN/Creatinine Ratio 26 Glucose 135 H Calculated Osmolality 290 Calcium 9.0 Total Bilirubin < 0.15 L AST 27 ALT 11 Alkaline Phosphatase 63 Creatine Kinase Troponin T Total Protein 7.2 Albumin 4.4 Globulin 3.0 Albumin/Globulin Ratio 2.0 Urine Source Urine Color Urine Clarity Urine pH Ur Specific [place] Urine Protein Urine Ketones Urine Blood Urine Nitrite Urine Bilirubin Urine Urobilinogen Urine Microscopic RBC Urine WBC Urine Microscopic WBC Ur Epithelial Cells Urine Crystals Urine Bacteria Urine Casts Urine Yeast Urine Glucose Gastric Occult Blood Salicylates Urine Opiates Screen Ur Oxycodone Screen Urine Methadone Screen Acetaminophen Ur Barbituates Screen Ur Tricyclics Screen Ur Phencyclidine Scrn Ur Amphetamines Screen U Methamphetamines Scrn Urine MDMA Screen U Benzodiazepines Scrn Urine Cocaine Screen U Cannabinoids Screen Plasma/Serum Ethyl Alc 10/15/16 10/15/16 10/15/16 16:50 16:50 16:50 WBC RBC Hgb Hct MCV MCH MCHC RDW Std Deviation Plt Count MPV Immature Gran % (Auto) Neut % (Auto) Lymph % (Auto) [place] % (Auto) Eos % (Auto) Baso % (Auto) Immature Gran # (Auto) Neut # (Auto) Lymph # (Auto) [place] # (Auto) Eos # (Auto) Baso # (Auto) PT INR APTT (Factor Assay) Specimen Type Sample Site pH pCO2 pO2 HCO3 Base Excess Oxyhemoglobin ABG O2 Sat (Calculated) ABG O2 Saturation ABG Carboxyhemoglobin ABG Methemoglobin Tl Test A-a O2 Difference Total Hemoglobin Lactate Liter Flow Blood Gas Modality FiO2 % Sodium Potassium Chloride Carbon Dioxide Anion Gap BUN Creatinine Estimated GFR/1.73 m2 BUN/Creatinine Ratio Glucose Calculated Osmolality Calcium Total Bilirubin AST ALT Alkaline Phosphatase Creatine Kinase 87 Troponin T Total Protein Albumin Globulin Albumin/Globulin Ratio Urine Source CATH Urine Color YELLOW Urine Clarity CLEAR Urine pH 5.0 Ur Specific [place] 1.020 Urine Protein TRACE A Urine Ketones TRACE Urine Blood NEGATIVE Urine Nitrite NEGATIVE Urine Bilirubin NEGATIVE Urine Urobilinogen NORMAL Urine Microscopic RBC Not Reportable Urine WBC 1+ A Urine Microscopic WBC 10-20 A Ur Epithelial Cells <10 Urine Crystals NONE SEEN Urine Bacteria 1+ Urine Casts NONE SEEN Urine Yeast NONE SEEN Urine Glucose NEGATIVE Gastric Occult Blood Salicylates Urine Opiates Screen NONE DETECTED Ur Oxycodone Screen NONE DETECTED Urine Methadone Screen NONE DETECTED Acetaminophen Ur Barbituates Screen NONE DETECTED Ur Tricyclics Screen PRESUMPTIVE POSITIVE A Ur Phencyclidine Scrn NONE DETECTED Ur Amphetamines Screen NONE DETECTED U Methamphetamines Scrn NONE DETECTED Urine MDMA Screen NONE DETECTED U Benzodiazepines Scrn NONE DETECTED Urine Cocaine Screen NONE DETECTED U Cannabinoids Screen NONE DETECTED Plasma/Serum Ethyl Alc 10/15/16 10/15/16 10/15/16 16:50 16:50 16:50 WBC RBC Hgb Hct MCV MCH MCHC RDW Std Deviation Plt Count MPV Immature Gran % (Auto) Neut % (Auto) Lymph % (Auto) [place] % (Auto) Eos % (Auto) Baso % (Auto) Immature Gran # (Auto) Neut # (Auto) Lymph # (Auto) [place] # (Auto) Eos # (Auto) Baso # (Auto) PT INR APTT (Factor Assay) Specimen Type Sample Site pH pCO2 pO2 HCO3 Base Excess Oxyhemoglobin ABG O2 Sat (Calculated) ABG O2 Saturation ABG Carboxyhemoglobin ABG Methemoglobin Tl Test A-a O2 Difference Total Hemoglobin Lactate Liter Flow Blood Gas Modality FiO2 % Sodium Potassium Chloride Carbon Dioxide Anion Gap BUN Creatinine Estimated GFR/1.73 m2 BUN/Creatinine Ratio Glucose Calculated Osmolality Calcium Total Bilirubin AST ALT Alkaline Phosphatase Creatine Kinase Troponin T < 0.010 Total Protein Albumin Globulin Albumin/Globulin Ratio Urine Source Urine Color Urine Clarity Urine pH Ur Specific [place] Urine Protein Urine Ketones Urine Blood Urine Nitrite Urine Bilirubin Urine Urobilinogen Urine Microscopic RBC Urine WBC Urine Microscopic WBC Ur Epithelial Cells Urine Crystals Urine Bacteria Urine Casts Urine Yeast Urine Glucose Gastric Occult Blood Salicylates 48.45 H Urine Opiates Screen Ur Oxycodone Screen Urine Methadone Screen Acetaminophen < 1.2 L Ur Barbituates Screen Ur Tricyclics Screen Ur Phencyclidine Scrn Ur Amphetamines Screen U Methamphetamines Scrn Urine MDMA Screen U Benzodiazepines Scrn Urine Cocaine Screen U Cannabinoids Screen Plasma/Serum Ethyl Alc 10/15/16 10/15/16 17:11 18:00 WBC RBC Hgb Hct MCV MCH MCHC RDW Std Deviation Plt Count MPV Immature Gran % (Auto) Neut % (Auto) Lymph % (Auto) [place] % (Auto) Eos % (Auto) Baso % (Auto) Immature Gran # (Auto) Neut # (Auto) Lymph # (Auto) [place] # (Auto) Eos # (Auto) Baso # (Auto) PT INR APTT (Factor Assay) Specimen Type ARTERIAL Sample Site R RADIAL pH 7.42 pCO2 37 pO2 84 HCO3 24.6 Base Excess -0.3 Oxyhemoglobin 90.4 L ABG O2 Sat (Calculated) 14.3 L ABG O2 Saturation 97.8 ABG Carboxyhemoglobin 5.90 H* ABG Methemoglobin 1.7 H Tl Test NO A-a O2 Difference 98.0 Total Hemoglobin 11.2 L Lactate 0.70 Liter Flow 3.0 Blood Gas Modality [place]UL[place] FiO2 % 32.0 Sodium Potassium Chloride Carbon Dioxide Anion Gap BUN Creatinine Estimated GFR/1.73 m2 BUN/Creatinine Ratio Glucose Calculated Osmolality Calcium Total Bilirubin AST ALT Alkaline Phosphatase Creatine Kinase Troponin T Total Protein Albumin Globulin Albumin/Globulin Ratio Urine Source Urine Color Urine Clarity Urine pH Ur Specific [place] Urine Protein Urine Ketones Urine Blood Urine Nitrite Urine Bilirubin Urine Urobilinogen Urine Microscopic RBC Urine WBC Urine Microscopic WBC Ur Epithelial Cells Urine Crystals Urine Bacteria Urine Casts Urine Yeast Urine Glucose Gastric Occult Blood POSITIVE A Salicylates Urine Opiates Screen Ur Oxycodone Screen Urine Methadone Screen Acetaminophen Ur Barbituates Screen Ur Tricyclics Screen Ur Phencyclidine Scrn Ur Amphetamines Screen U Methamphetamines Scrn Urine MDMA Screen U Benzodiazepines Scrn Urine Cocaine Screen U Cannabinoids Screen Plasma/Serum Ethyl Alc Orders Category Date Time Status Saline Loc DIRECTED Care 10/15/16 16:57 Active CHEST-PORTABLE [RAD] Stat Exams 10/15/16 17:01 Taken HEAD W/O CONTRAST [CT] Routine Exams 10/15/16 17:41 Taken ABG [RESP] Routine Lab 10/15/16 18:00 Completed ACETAMINOPHEN [TDM] Stat Lab 10/15/16 16:50 Completed ALCOHOL BLOOD Stat Lab 10/15/16 16:50 Completed CBC WITH ELECTRONIC DIFF [HEME] Stat Lab 10/15/16 16:50 Completed CK PROFILE [SP CHEM] Stat Lab 10/15/16 16:50 Completed COMPREHENSIVE METABOLIC PANEL [CHEM] Stat Lab 10/15/16 16:50 Completed OCCULT BLOOD NON-FECES PL Stat Lab 10/15/16 17:11 Completed OCCULT BLOOD SCREEN STOOL PL Stat Lab 10/15/16 18:26 Or[address]IME WITH INR PL [COAG] Stat Lab 10/15/16 16:[address] [COAG] Stat Lab 10/15/16 16:50 Completed SALICYLATES [TDM] Stat Lab 10/15/16 16:50 Completed TROPONIN T Stat Lab 10/15/16 16:50 Completed TYPE & SCREEN [BBK] Stat Lab 10/15/16 16:[address] W/POSS RFLX CULT [URINALYSIS] Stat Lab 10/15/16 16:50 Completed URINE CULTURE [RM] Routine Lab 10/15/16 17:45 Ordered URINE DRUG SCREEN PL Stat Lab 10/15/16 16:50 Completed 0.9% Sodium Chloride Inj [Ns] 1,000 ml Med 10/15/16 17:11 Discontinued .ROUTE As Directed 0.9% Sodium Chloride Inj [Ns] 1,000 ml Med 10/15/16 16:57 Active IV 125 mls/hr 0.9% Sodium Chloride Inj [Ns] 1,000 ml Med 10/15/16 17:20 Discontinued IV 999 mls/hr Famotidine [Pepcid] Med 10/15/16 17:12 Discontinued 20 mg .ROUTE .STK-MED ONE Famotidine [Pepcid] Med 10/15/16 17:18 Discontinued 20 mg IV NOW ONE Famotidine [Pepcid] Med 10/15/16 18:08 Discontinued 20 mg IV NOW ONE Ondansetron [Zofran] Med 10/15/16 16:55 Discontinued 4 mg .ROUTE .STK-MED ONE Ondansetron [Zofran] Med 10/15/16 16:59 Discontinued 4 mg IV NOW ONE Promethazine [Phenergan] Med 10/15/16 17:31 Discontinued 25 mg .ROUTE .STK-MED ONE Promethazine [Phenergan] Med 10/15/16 18:08 Discontinued 25 mg IV NOW ONE Sodium Chloride 0.9% Med 10/15/16 18:08 Discontinued 10 ml INJ NOW ONE Sodium Chloride 0.9% Med 10/15/16 17:18 Discontinued 5 - 10 ml INJ NOW ONE Sodium Chloride 0.9% Med 10/15/16 18:08 Discontinued 5 - 10 ml INJ NOW ONE EKG [EKG] Stat Ther 10/15/16 17:02 Draft Result Diagrams: 10/15/16 16:50 10/15/16 16:50 - REASSESSMENT Reassessment #2 Time Reassessed: 19:00 Status: improving (ALERT HEMODYNAMICALLY STABLE) - XRAY 1 XRAY Study: Chest (no acute pulmonic process evident portable film) <Oumar Downs - Last Filed: 10/15/16 19:27> - PLAN OF CARE/RESULTS Progress/Plan/Lab Results: Vital Signs - 8 hr 10/15/16 16:51 Pulse Rate 131 H Respiratory Rate 24 Blood Pressure 107/90 O2 Sat by Pulse Oximetry 94 L Orders Category Date Time Status Saline Loc DIRECTED Care 10/15/16 16:57 Active FLAT/UPRIGHT ABD/1 VIEW CHEST [RAD] Stat Exams 10/15/16 17:01 Ordered ACETAMINOPHEN [TDM] Stat Lab 10/15/16 17:02 Ordered ALCOHOL BLOOD Stat Lab 10/15/16 17:02 Ordered CBC WITH ELECTRONIC DIFF [HEME] Stat Lab 10/15/16 16:57 Ordered CK PROFILE [SP CHEM] Stat Lab 10/15/16 17:01 Ordered COMPREHENSIVE METABOLIC PANEL [CHEM] Stat Lab 10/15/16 16:57 Ordered OCCULT BLOOD NON-FECES PL Stat Lab 10/15/16 16:58 Ordered OCCULT BLOOD SCREEN STOOL PL Stat Lab 10/15/16 16:57 Uncollected PROTIME WITH INR PL [COAG] Stat Lab 10/15/16 16:[address] [COAG] Stat Lab 10/15/16 16:57 Ordered SALICYLATES [TDM] Stat Lab 10/15/16 17:02 Ordered TROPONIN T Stat Lab 10/15/16 17:01 Ordered TYPE & SCREEN [BBK] Stat Lab 10/15/16 16:[address] W/POSS RFLX CULT [URINALYSIS] Stat Lab 10/15/16 17:00 Ordered URINE DRUG SCREEN PL Stat Lab 10/15/16 17:00 Ordered 0.9% Sodium Chloride Inj [Ns] 1,000 ml Med 10/15/16 16:57 Active IV 125 mls/hr Ondansetron [Zofran] Med 10/15/16 16:55 Discontinued 4 mg .ROUTE .STK-MED ONE Ondansetron [Zofran] Med 10/15/16 16:59 Discontinued 4 mg IV NOW ONE EKG [EKG] Stat Ther 10/15/16 17:02 Ordered 1715 - unable to obtain medical hx or home medications from patient in current state. EMS reports family was going to try to get a ride to come to the ER. Result Diagrams: 10/18/16 04:48 10/17/16 04:35 - REASSESSMENT Reassessment #1 Time Reassessed: 17:41 Status: improving Reassessment Comment: Pt is more alert, able to follow commands - EKG 1 Time of EKG reading by physician:: 17:00 EKG Read and Signed by:: Jose Walter EKG Interpretation (*Must complete 3 of following elements*): Abnormal Rate: 137 Rhythm: sinus tach with short TN [place]: normal QRS: normal [place] Interval: shortened ST Wave: non-specific ST changes (ST&T wave abnormality, consider anterior ischemia) <Jose Walter - Last Filed: 11/02/16 02:35> Departure - Departure Date of Disposition Decision: 10/15/16 Time of Disposition Decision: 19:28 Certified Medical Emergency: Emergent - Critical Care Note This patient required my direct & personal management of CC.: No <Oumar Downs - Last Filed: 10/15/16 19:27> - Departure Date of Disposition Decision: 10/15/16 Time of Disposition Decision: 19:28 Certified Medical Emergency: Emergent - Critical Care Note This patient required my direct & personal management of CC.: No <Jose Walter - Last Filed: 11/02/16 02:35> - Departure DIAGNOSIS: GI bleed due to NSAIDs, Altered mental status Disposition: ADMITTED INPATIENT 09 Condition: Fair This chart was documented by the indicated scribe, (Shandra Hines Scribe) and accurately reflects the services I performed and decisions made by me, Jose Walter MD, as attested by the provider's signature.
== END 2016-10-18 18:36 | disposition home or self-care (01) ==
LOC: P.ED 16:50 → SUATTDRO 19:41 → 3S 19:41 → MERGE 19:41
PROVIDERS: ATTEND Emergency Medicine